=== PATIENT | male | born 1985 | race Caucasian/White ===

== ENCOUNTER 2019-03-18 14:33 | Outpatient (CLI) | payer OTHER ==
[2019-03-18] MEDS ORDERED: SULF1TAB24 PO (14:51)
[2019-03-18] MEDS ORDERED: TOPI100T24 PO (14:51)
== END 2019-03-18 23:59 | disposition home or self-care (01) ==
LOC: STAR 14:33
PROVIDERS: ATTEND Urology
DX: Z02.9 Encounter for administrative examinations, unspecified (principal)

== ENCOUNTER 2019-03-24 05:39 | Inpatient (IN) | payer OTHER ==
[~2019-03-24] VITALS: Ht 177.8 cm; Wt 84.6 kg
[~2019-03-24 05:39] MED LIST: SULF1TAB24 PO; TOPI100T24 PO
[2019-03-24 06:20] VITALS: BP 129/81
[2019-03-24] MEDS ORDERED: LACTATED RINGERS 1,000 ML IV SCH (06:25)
[2019-03-24] MEDS ORDERED: LIDOCAINE-MPF 1%, 2ML ONE (06:27)
[2019-03-24] MEDS ORDERED: LIDOCAINE-MPF 1%, 2ML INFIL ONE (07:00)
[2019-03-24] MEDS ORDERED: BUPIVACAINE/PF-EPI 0.5% 1:200K ONE (07:12)
[2019-03-24] MEDS ORDERED: THROMBIN 5,000 UNIT VIAL TP ONE ×2 (07:12→08:27)
[2019-03-24] MEDS ORDERED: MIDAZOLAM 1 MG/ML, 2ML ONE (07:24)
[2019-03-24] MEDS ORDERED: FENTANYL PF 250 MCG/5ML ONE ×2 (07:24→08:56)
[2019-03-24] MEDS ORDERED: LEVOFLOXACIN/PMX 500MG/100ML 100 ML IV ONE (08:00)
[2019-03-24] MEDS ORDERED: GENTAMICIN 350 MG in SODIUM CHLORIDE 0.9% 100 ML IV ONE (08:00)
[2019-03-24] MEDS ORDERED: BUPIVACAINE/PF-EPI 0.5% 1:200K INFIL ONE (08:26)
[2019-03-24] MEDS ORDERED: MEPERIDINE/PF 25MG/0.5ML IVPush PRN (08:30)
[2019-03-24] MEDS ORDERED: ACETAMINOPHEN 325 MG TABLET PO PRN (08:30)
[2019-03-24] MEDS ORDERED: PROMETHAZINE 25 MG SUPP PR PRN (08:30)
[2019-03-24] MEDS ORDERED: HYDROmorphone 2 MG/ML, 1ML IVPush PRN (08:30)
[2019-03-24] MEDS ORDERED: ONDANSETRON ODT 8 MG PO PRN (08:30)
[2019-03-24] MEDS ORDERED: OXYcodone 5 MG/5 ML ORAL.SOL UDC PO PRN (08:30)
[2019-03-24] MEDS ORDERED: ONDANSETRON 2MG/ML, 2ML IV PRN ×2 (08:30→15:00)
[2019-03-24] MEDS ORDERED: PROMETHAZINE 25 MG/ML, 1ML IV PRN (08:30)
[2019-03-24] MEDS ORDERED: LORazepam 2 MG/ML, 1ML IVPush PRN (08:30)
[2019-03-24] MEDS ORDERED: CEFAZOLIN 1,000 MG ONE (08:41)
[2019-03-24] MEDS ORDERED: DEXAMETHASONE 4 MG/ML, 1ML ONE (08:41)
[2019-03-24] MEDS ORDERED: SUCCINYLCHOLINE 20 MG/ML, 10ML ONE (08:41)
[2019-03-24] MEDS ORDERED: PROPOFOL 10 MG/ML, 20ML ONE (08:41)
[2019-03-24] MEDS ORDERED: ONDANSETRON 2MG/ML, 2ML ONE ×2 (08:41→13:29)
[2019-03-24] MEDS ORDERED: NEOSTIGMINE 1 MG/ML, 10ML ONE (08:41)
[2019-03-24] MEDS ORDERED: GLYCOPYRROLATE 0.2MG/1ML, 5ML ONE (08:41)
[2019-03-24] MEDS ORDERED: ROCURONIUM 10MG/ML,5ML ONE (08:41)
[2019-03-24] MEDS ORDERED: SUGAMMADEX 200 MG/2 ML IVPush ONE (11:48)
[2019-03-24] MEDS ORDERED: EPHEDRINE 50 MG/ML, 1ML ONE (12:06)
[2019-03-24] MEDS ORDERED: SILVER NITRATE STICK TP ONE (12:20)
[2019-03-24] MEDS ORDERED: ACETAMINOPHEN 650 MG/20.3 ML UDC ONE (12:43)
[2019-03-24] MEDS ORDERED: FENTANYL PF 100 MCG/2ML ONE (12:43)
[2019-03-24] MEDS ORDERED: HYDROmorphone 2 MG/ML, 1ML ONE (12:43)
[2019-03-24] MEDS ORDERED: OXYcodone 5 MG/5 ML ORAL.SOL UDC ONE (12:43)
[2019-03-24] MEDS: FENTANYL PF 100 MCG/2ML IV PRN ×2 (12:47→12:58)
[2019-03-24] MEDS ORDERED: morphine SULFATE 10 MG/ML, 1ML IV PRN (15:00)
[2019-03-24] MEDS ORDERED: DIPHENHYDRAMINE 50 MG/ML, 1ML IV PRN (15:00)
[2019-03-24] MEDS: LACTATED RINGERS 1,000 ML IV SCH (15:08)
[2019-03-24] MEDS: LEVOFLOXACIN 500 MG TABLET PO SCH (15:08)
[2019-03-24] MEDS: KETOROLAC 30 MG/1 ML IV PRN ×2 (16:16→22:21)
[2019-03-24 19:03] VITALS: BP 102/64
[2019-03-24] MEDS: HYDROcodone/APAP 5/325 TABLET PO PRN ×2 (22:22→23:57)
[2019-03-24] MEDS: DOCUSATE 100 MG CAPSULE PO SCH (22:48)
[2019-03-25 00:31] VITALS: BP 102/56
[2019-03-25] MEDS: LACTATED RINGERS 1,000 ML IV SCH ×2 (00:41→10:03)
[2019-03-25 04:11] VITALS: BP 100/50
[2019-03-25] MEDS: HYDROcodone/APAP 5/325 TABLET PO PRN ×3 (04:13→12:16)
[2019-03-25] MEDS ORDERED: GENTAMICIN 350 MG in SODIUM CHLORIDE 0.9% 100 ML IV ONE (08:00)
[2019-03-25] MEDS: DOCUSATE 100 MG CAPSULE PO SCH (08:12)
[2019-03-25] MEDS ORDERED: TOPIRAMATE 100 MG TABLET PO SCH (09:00)
[2019-03-25 09:05] VITALS: BP 107/54
[2019-03-25] MEDS ORDERED: DOCU-131 PO (10:53)
[2019-03-25] MEDS ORDERED: HYDR-3240 PO (10:53)
[2019-03-25] MEDS ORDERED: DIAZ5TAB PO (10:54)
[2019-03-25] MEDS ORDERED: NITR100C56 PO (10:56)
[2019-03-25 14:12] VITALS: BP 115/58
[2019-03-25] MEDS: LEVOFLOXACIN 500 MG TABLET PO SCH (14:28)
== END 2019-03-25 15:30 | disposition home or self-care (01) | DRG 672 ==
LOC: OUT 05:39 → 4NOR 14:20 → OUT 15:12 → DCLOUNGE 03-25 15:24
PROVIDERS: ADMIT Urology; ATTEND Urology
PROC: 0T2BX0Z Change Drainage Device in Bladder, External Approach (ICD-10-PCS; 2019-03-24)
PROC: 0TBD8ZZ Excision of Urethra, Via Natural or Artificial Opening Endoscopic (ICD-10-PCS; principal; 2019-03-24 07:30)
DX: N35.011 Post-traumatic bulbous urethral stricture (principal); G40.909 Epilepsy, unspecified, not intractable, without status epilepticus; Z88.0 Allergy status to penicillin; Z88.8 Allergy status to other drugs, medicaments and biological substances; Z87.891 Personal history of nicotine dependence
CPT/HCPCS: G0378; J0690; J1100; J1170; J1885; J1956; J2250; J2405; J2704; J2710; J3010; J0330; J1580; J7120

== ENCOUNTER 2019-04-14 10:34 | Outpatient (CLI) | payer OTHER ==
[~2019-04-14 10:34] MED LIST changes: +DIAZ5TAB PO; +DOCU-131 PO; +HYDR-3240 PO; +NITR100C56 PO
== END 2019-04-14 23:59 | disposition home or self-care (01) ==
LOC: RAD 10:34
PROVIDERS: ATTEND Urology
DX: N35.011 Post-traumatic bulbous urethral stricture (principal)
CPT/HCPCS: 51610; 74450; Q9958